=== PATIENT | female | born 1950 | race Caucasian/White ===

== ENCOUNTER → 2021-04-19 | Outpatient (CLI) | payer MEDICARE, SELFPAY ==
[~2021-04-19] MED LIST: B-COMPLEX; CHLORTHALIDONE25 MG PO; HYDROCODON-ACE1 EAC4 PO; LEVOTHYROXINE75 MCG PO; LISINOPRIL5 MG PO; PRESER VISION PO; VITAMIN D21250 MCG PO; [UNRECOGNIZED DRUG - OTHER]
== END ==
LOC: KOH-I 09:49
DX: R74.8 Abnormal levels of other serum enzymes (principal); K80.80 Other cholelithiasis without obstruction
CPT/HCPCS: 76705

== ENCOUNTER → 2021-05-11 | Outpatient (CLI) | payer MEDICARE, SELFPAY | LOC: NM 10:00 | DX: K80.20 Calculus of gallbladder without cholecystitis without obstruction (principal); R93.5 Abnormal findings on diagnostic imaging of other abdominal regions, including retroperitoneum; R74.8 Abnormal levels of other serum enzymes; R11.0 Nausea | CPT/HCPCS: 78226; A9537 ==

== ENCOUNTER → 2021-06-07 | Day surgery (SDC) | payer MEDICARE, SELFPAY | END | disposition home or self-care (01) | LOC: OR 06:48 | DX: K82.8 Other specified diseases of gallbladder (principal); K80.10 Calculus of gallbladder with chronic cholecystitis without obstruction; I10 Essential (primary) hypertension; E03.9 Hypothyroidism, unspecified; M40.14 Other secondary kyphosis, thoracic region; Z79.899 Other long term (current) drug therapy; Z90.710 Acquired absence of both cervix and uterus; Z87.891 Personal history of nicotine dependence | CPT/HCPCS: J0690; J1100; J2001; J2405; J2704; J2710; J3010; J7030; J7120 ==